=== PATIENT | female | born 1965 ===

== ENCOUNTER 2017-08-07 01:21 | Outpatient (CLI) | payer BC | END 2017-08-07 23:59 | disposition home or self-care (01) | LOC: DIABETIC 01:21 | PROVIDERS: ATTEND Surgery | DX: E11.9 Type 2 diabetes mellitus without complications (principal) | CPT/HCPCS: 97802 ==

== ENCOUNTER 2017-09-10 02:49 | Outpatient (CLI) | payer BC | END 2017-09-10 23:59 | disposition home or self-care (01) | LOC: DIABETIC 02:49 | PROVIDERS: ATTEND Surgery | DX: E66.01 Morbid (severe) obesity due to excess calories (principal); E11.9 Type 2 diabetes mellitus without complications; K21.9 Gastro-esophageal reflux disease without esophagitis | CPT/HCPCS: 97802 ==